=== PATIENT | male | born 2000 | race Two or more races ===

== ENCOUNTER 2021-09-18 13:28 | Inpatient (IN) | payer OTHER ==
[~2021-09-18] VITALS: Ht 177.8 cm; Wt 76.8 kg
[2021-09-18 13:54] LABS: BASOPHILS % (AUTO) 0.4 % (0.0-2.0); EOSINOPHILS % (AUTO) 0.8 % (1.0-6.0); HEMATOCRIT 44.7 % (41-53); HEMOGLOBIN 14.8 g/dL (13.5-17.5); LYMPHOCYTES # (AUTO) 2.4 K/uL (1.0-4.8); LYMPHOCYTES % (AUTO) 25.1 % (22.0-44.0); MEAN CORPUSCULAR HEMOGLOBIN 27.5 pg (26.0-34.0); MEAN CORPUSCULAR HGB CONC 33.1 G/dL (31.0-37.0); MEAN CORPUSCULAR VOLUME 83 fL (80-100); MONOCYTES # (AUTO) 0.6 K/uL (0.1-1.0); MONOCYTES % (AUTO) 6.5 % (2.0-9.0); NEUTROPHILS # (AUTO) 6.3 K/uL (1.8-7.7); NEUTROPHILS % (AUTO) 67.2 % (40.0-70.0); PLATELET COUNT (AUTO) 254 K/uL (150-450); RED BLOOD CELL COUNT(AUTO) 5.39 MIL/uL (4.50-5.90); RED CELL DISTRIBUTION WIDTH 13.5 % (11.5-14.5)
[2021-09-18] MEDS ORDERED: ZOLPIDEM TARTRATE 5 MG TABLET PO PRN (14:00)
[2021-09-18] MEDS ORDERED: MAGNESIUM HYDROXIDE SUSPENSION 30 ML UDCUP PO PRN ×2 (14:00→15:30)
[2021-09-18] MEDS ORDERED: ACETAMINOPHEN 325 MG TABLET PO PRN (14:00)
[2021-09-18] MEDS ORDERED: OxyCODONE HCL/ACETAMINOPHEN 5-325 MG TABLET PO PRN (14:00)
[2021-09-18] MEDS ORDERED: ONDANSETRON HCL 4 MG/2 ML VIAL IVP PRN ×2 (14:00→15:30)
[2021-09-18] MEDS ORDERED: MORPHINE SULFATE 4 MG/ML SYRINGE IVP PRN (14:00)
[2021-09-18 14:05] LABS: ANION GAP 10 mmol/L (8-16); CALCIUM, TOTAL 9.5 mg/dL (8.8-10.5); CARBON DIOXIDE 29 mmol/L (22-29); CHLORIDE 104 mmol/L (98-107); CREATININE 0.99 mg/dL (0.60-1.30); GLOMERULAR FILTR. RATE CALC > 60 mL/min (>60); GLUCOSE,RANDOM 126 mg/dL (70-110); SODIUM SERUM 143 mmol/L (136-145); UREA NITROGEN, BLOOD 14 mg/dL (7-18)
[2021-09-18 14:08] LABS: COVID AG,FIA SOURCE NASOPHARYNGEAL
[2021-09-18 14:09] LABS: ALANINE AMINOTRANSFERASE 50 U/L (12-78); ALBUMIN 3.8 g/dL (3.4-5.0); ALKALINE PHOSPHATASE 131 U/L (46-116); ASPARTATE AMINOTRANSFERASE 23 U/L (15-37); BILIRUBIN,TOTAL 0.4 mg/dL (0.1-1.0)
[2021-09-18 15:58] VITALS: BP 114/70
[2021-09-18] MEDS ORDERED: SODIUM CHLORIDE 0.9% 1,000 ML IV ONE ×2 (20:00)
[2021-09-18 20:22] VITALS: BP 110/63
[2021-09-19] MEDS ORDERED: RINGERS SOLUTION,LACTATED 1,000 ML IV SCH (05:00)
[2021-09-19 05:14] VITALS: BP 107/50
[2021-09-19] MEDS ORDERED: VANCOMYCIN HCL 1 GM/VIAL ONE (05:54)
[2021-09-19] MEDS ORDERED: MUPIROCIN CALCIUM 2% 22 GM OINTMENT ONE (05:54)
[2021-09-19] MEDS ORDERED: MICROFIBRILLAR COLLAGEN 1 GM PACKAGE TP ONE (05:55)
[2021-09-19] MEDS ORDERED: SODIUM CL IRRIG SOLN BAG 3,000 ML IRRIG ONE (05:55)
[2021-09-19] MEDS ORDERED: BUPIVACAINE HCL/PF 0.25% 30 ML VIAL ONE (05:55)
[2021-09-19] MEDS ORDERED: BUPIVACAINE LIPOSOME/PF 1.3%-13.3MG/ML SUSPENSION 20 ML VIAL INJ ONE (06:00)
[2021-09-19] MEDS ORDERED: FentaNYL CITRATE PF 100 MCG/2 ML VIAL IVP PRN (08:15)
[2021-09-19] MEDS ORDERED: MEPERIDINE-PF 25 MG/ML VIAL IVP PRN (08:15)
[2021-09-19] MEDS ORDERED: HYDROmorphone 2 MG/ML VIAL IVP PRN (08:15)
[2021-09-19] MEDS ORDERED: MEPERIDINE-PF 25 MG/ML VIAL ONE (08:46)
[2021-09-19] MEDS ORDERED: FAMOTIDINE 20 MG TABLET PO SCH (09:00)
[2021-09-19] MEDS ORDERED: FentaNYL CITRATE PF 100 MCG/2 ML VIAL ONE (09:10)
[2021-09-19] MEDS: MORPHINE SULFATE 2 MG/ML SYRINGE IVP PRN (09:58)
[2021-09-19] MEDS: FAMOTIDINE 20 MG TABLET PO SCH (09:59)
[2021-09-19 10:00] VITALS: BP 136/79
[2021-09-19] MEDS ORDERED: ROCURONIUM BROMIDE 10 MG/ML 5 ML VIAL IVP ONE (12:00)
[2021-09-19] MEDS ORDERED: PROPOFOL 1% 20 ML VIAL IVP ONE (12:00)
[2021-09-19] MEDS ORDERED: LIDOCAINE/PF 2% 5 ML VIAL IM ONE (12:00)
[2021-09-19] MEDS ORDERED: KETOROLAC TROMETHAMINE 60 MG/2 ML VIAL IM ONE (12:00)
[2021-09-19] MEDS ORDERED: ONDANSETRON HCL 4 MG/2 ML VIAL IVP ONE (12:00)
[2021-09-19] MEDS: OxyCODONE HCL/ACETAMINOPHEN 5-325 MG TABLET PO PRN ×3 (12:50→22:11)
[2021-09-19] MEDS ORDERED: INFLUENZA VIRUS VACCINE QVS 2021-22 (6MO+)/PF 60 MCG/0.5 ML SYRINGE IM. ONE (14:30)
[2021-09-19] MEDS: CeFAZolin 1 GM/DEXTROSE 50 ML IV SCH ×2 (14:33→23:08)
[2021-09-19] MEDS: OXYGEN THERAPY IH SCH (20:00)
[2021-09-19 20:30] VITALS: BP 99/57
[2021-09-20 05:05] VITALS: BP 111/70
[2021-09-20] MEDS: OxyCODONE HCL/ACETAMINOPHEN 5-325 MG TABLET PO PRN ×3 (06:23→22:42)
[2021-09-20] MEDS ORDERED: MORPHINE SULFATE/PF 0.5 MG/ML 10 ML AMP IVP ONE (06:56)
[2021-09-20] MEDS ORDERED: MORPHINE SULFATE 4 MG/ML SYRINGE IVP ONE (06:56)
[2021-09-20] MEDS ORDERED: MIDAZOLAM HCL 2 MG/2 ML VIAL IVP ONE (06:56)
[2021-09-20] MEDS ORDERED: FentaNYL CITRATE PF 100 MCG/2 ML VIAL IVP ONE (06:56)
[2021-09-20 07:48] VITALS: BP 111/67
[2021-09-20] MEDS: OXYGEN THERAPY IH SCH ×2 (08:00→20:00)
[2021-09-20] MEDS: ASPIRIN 81 MG CHEWABLE TABLET PO SCH (08:20)
[2021-09-20] MEDS: MORPHINE SULFATE 2 MG/ML SYRINGE IVP PRN ×2 (08:20→12:29)
[2021-09-20] MEDS: FAMOTIDINE 20 MG TABLET PO SCH (08:20)
[2021-09-20] MEDS: SULFAMETHOX/TRIMETH DS 800-160 MG/TABLET PO SCH ×2 (08:20→20:20)
[2021-09-20 15:47] VITALS: BP 113/60
[2021-09-20 20:13] VITALS: BP 118/72
[2021-09-20] MEDS: ZOLPIDEM TARTRATE 5 MG TABLET PO PRN (20:20)
[2021-09-21 02:48] VITALS: BP 117/67
[2021-09-21 07:25] VITALS: BP 117/62
[2021-09-21] MEDS: OXYGEN THERAPY IH SCH ×2 (08:00→20:00)
[2021-09-21] MEDS: ASPIRIN 81 MG CHEWABLE TABLET PO SCH (08:44)
[2021-09-21] MEDS: SULFAMETHOX/TRIMETH DS 800-160 MG/TABLET PO SCH ×2 (08:44→20:43)
[2021-09-21] MEDS: FAMOTIDINE 20 MG TABLET PO SCH (08:44)
[2021-09-21] MEDS: OxyCODONE HCL/ACETAMINOPHEN 5-325 MG TABLET PO PRN ×2 (08:45→15:02)
[2021-09-21 21:02] VITALS: BP 100/57
[2021-09-22] MEDS: OxyCODONE HCL/ACETAMINOPHEN 5-325 MG TABLET PO PRN ×2 (01:33→06:24)
[2021-09-22 04:00] VITALS: BP 109/67
[2021-09-22] MEDS: OXYGEN THERAPY IH SCH ×2 (08:00→20:00)
[2021-09-22 08:06] VITALS: BP 104/53
[2021-09-22] MEDS: ASPIRIN 81 MG CHEWABLE TABLET PO SCH (08:15)
[2021-09-22] MEDS: FAMOTIDINE 20 MG TABLET PO SCH (08:15)
[2021-09-22] MEDS: SULFAMETHOX/TRIMETH DS 800-160 MG/TABLET PO SCH ×2 (08:15→20:44)
[2021-09-22] MEDS: IBUPROFEN 400 MG TABLET PO PRN (17:27)
[2021-09-22 20:05] VITALS: BP 101/62
[2021-09-22] MEDS: ZOLPIDEM TARTRATE 5 MG TABLET PO PRN (20:44)
[2021-09-23 05:00] VITALS: BP 114/61
[2021-09-23 08:00] VITALS: BP 104/54
[2021-09-23] MEDS: OXYGEN THERAPY IH SCH ×2 (08:00→20:00)
[2021-09-23] MEDS: FAMOTIDINE 20 MG TABLET PO SCH (08:58)
[2021-09-23] MEDS: SULFAMETHOX/TRIMETH DS 800-160 MG/TABLET PO SCH ×2 (08:58→20:15)
[2021-09-23] MEDS: ASPIRIN 81 MG CHEWABLE TABLET PO SCH (08:58)
[2021-09-23] MEDS: IBUPROFEN 400 MG TABLET PO PRN (08:58)
[2021-09-23] MEDS: ACETAMINOPHEN 325 MG TABLET PO PRN ×2 (12:09→16:55)
[2021-09-23 20:22] VITALS: BP 122/72
[2021-09-24] MEDS: IBUPROFEN 400 MG TABLET PO PRN (01:21)
[2021-09-24 04:20] VITALS: BP 99/53
[2021-09-24 07:35] VITALS: BP 109/72
[2021-09-24] MEDS: OXYGEN THERAPY IH SCH (08:00)
[2021-09-24] MEDS: ASPIRIN 81 MG CHEWABLE TABLET PO SCH (08:42)
[2021-09-24] MEDS: SULFAMETHOX/TRIMETH DS 800-160 MG/TABLET PO SCH (08:43)
[2021-09-24] MEDS: ACETAMINOPHEN 325 MG TABLET PO PRN (08:43)
[2021-09-24] MEDS: FAMOTIDINE 20 MG TABLET PO SCH (08:43)
== END 2021-09-24 14:15 | DRG 494 ==
LOC: EMS 13:31 → 6S 15:52
PROVIDERS: ADMIT Internal Medicine; ATTEND Internal Medicine
PROC: 0QSG04Z Reposition Right Tibia with Internal Fixation Device, Open Approach (ICD-10-PCS; 2021-09-19)
PROC: 0QSL04Z Reposition Right Tarsal with Internal Fixation Device, Open Approach (ICD-10-PCS; 2021-09-19)
PROC: 2W3LX1Z Immobilization of Right Lower Extremity using Splint (ICD-10-PCS; 2021-09-19)
PROC: 0QSL04Z Reposition Right Tarsal with Internal Fixation Device, Open Approach (ICD-10-PCS; principal; 2021-09-19 07:00)
DX: S82.51XA Displaced fracture of medial malleolus of right tibia, initial encounter for closed fracture (principal); S92.211A Displaced fracture of cuboid bone of right foot, initial encounter for closed fracture; S92.251A Displaced fracture of navicular [scaphoid] of right foot, initial encounter for closed fracture; W17.89XA Other fall from one level to another, initial encounter; Z20.822 Contact with and (suspected) exposure to COVID-19; Y93.89 Activity, other specified; Y92.89 Other specified places as the place of occurrence of the external cause; Y99.8 Other external cause status; Z91.014 Allergy to mammalian meats
CPT/HCPCS: 73700; 80053; 85025; 87081; 90686; 97110; 97116; 97161; 97162; 97166; 97530; 97535; 99285; C9290; J0690; J1885; J2175; J2250; J2270; J2274; J2405; J2704; J3010; J3370; J3490; J7030; J7120